=== PATIENT | female | born 1955 | race Caucasian/White ===

== ENCOUNTER 2020-08-15 05:40 | Inpatient (IN) | payer BC, MEDICARE, SELFPAY ==
[~2020-08-15] VITALS: Ht 157.5 cm; Wt 71.2 kg
[2020-08-15 05:45] VITALS: BP_SYST 156
[2020-08-15] MEDS ORDERED: cefTRIAXone 1 GM IVPB PREMIX 50 ML IV ONE (06:30)
[2020-08-15] MEDS ORDERED: KETOROLAC TROMETHAMINE 30 MG VIAL IVP ONE (06:45)
[2020-08-15 07:00] LABS: BASOPHILS % (AUTO) 0.4 % (0.0-2.0); EOSINOPHILS # (AUTO) 0.1 K/uL (0.0-0.4); EOSINOPHILS % (AUTO) 1.3 % (0.0-4.0); HEMATOCRIT 42.6 % (36-48); HEMOGLOBIN 14.1 g/dL (12.0-16.0); LYMPHOCYTES # (AUTO) 1.7 K/uL (1.0-5.5); LYMPHOCYTES % (AUTO) 17.9 % (20.5-51.5); MEAN CORPUSCULAR HEMOGLOBIN 30 pg (27-31); MEAN CORPUSCULAR HGB CONC 33 % (32-36); MEAN CORPUSCULAR VOLUME 91 fL (79.0-98.0); MONOCYTES # (AUTO) 0.6 K/uL (0.0-1.0); NEUTROPHILS # (AUTO) 6.9 K/uL (1.8-7.7); NEUTROPHILS % (AUTO) 74.4 % (40.0-70.0); PLATELET COUNT (AUTO) 376 K/uL (130-430); RED CELL DISTRIBUTION WIDTH 14.3 % (9.0-15.0); WHITE BLOOD COUNT (AUTO) 9.3 K/uL (4.8-10.8)
[2020-08-15 07:19] LABS: CALCIUM 9.6 mg/dL (8.4-11.0); CREATININE 0.63 mg/dL (0.55-1.30)
[2020-08-15 07:25] LABS: ALBUMIN 3.8 g/dL (3.4-4.8); TOTAL BILIRUBIN 0.5 mg/dL (0.0-1.0)
[2020-08-15] MEDS: D5/0.45 NS 1,000 ML IV SCH ×3 (08:18→22:26)
[2020-08-15 09:14] VITALS: BP_SYST 138
[2020-08-15 09:26] VITALS: BP_SYST 138
[2020-08-15] MEDS ORDERED: HYDROcodone/ACETAMIN 5-325 MG TAB (NORCO/ VICODIN) PO PRN (13:15)
[2020-08-15 16:14] VITALS: BP_SYST 132
[2020-08-15] MEDS ORDERED: KETOROLAC TROMETHAMINE 10 MG TABLET (TORADOL) PO PRN (16:30)
[2020-08-15] MEDS ORDERED: KETOROLAC TROMETHAMINE 15 MG VIAL IM PRN (16:45)
[2020-08-15] MEDS: KETOROLAC TROMETHAMINE 15 MG VIAL IVP PRN ×2 (16:56→23:01)
[2020-08-15 20:00] VITALS: BP_SYST 141
[2020-08-15] MEDS ORDERED: CIPROFLOXACIN HCL OT SCH (21:00)
[2020-08-15] MEDS ORDERED: DEXAMET OT SCH (21:00)
[2020-08-15] MEDS: CIPROFLOXACIN HCL LEFT EAR SCH (22:26)
[2020-08-15] MEDS: DEXAMET LEFT EAR SCH (22:26)
[2020-08-15] MEDS: guaiFENesin/DEXTROMETHORPHAN 10 ML UDC PO PRN (23:01)
[2020-08-15] MEDS: DIPHENHYDRAMINE INJ 50 MG/ML VIAL IVP PRN (23:01)
[2020-08-16] VITALS: BP_SYST 135
[2020-08-16] MEDS: KETOROLAC TROMETHAMINE 15 MG VIAL IVP PRN ×3 (05:05→18:55)
[2020-08-16] MEDS: DIPHENHYDRAMINE INJ 50 MG/ML VIAL IVP PRN (05:05)
[2020-08-16] MEDS: guaiFENesin/DEXTROMETHORPHAN 10 ML UDC PO PRN ×2 (05:05→20:45)
[2020-08-16] MEDS: LEVOFLOXACIN 500 MG/D5W 100 ML IV SCH (06:07)
[2020-08-16 06:08] LABS: BASOPHILS % (AUTO) 0.1 % (0.0-2.0); EOSINOPHILS % (AUTO) 0.3 % (0.0-4.0); HEMATOCRIT 36.7 % (36-48); HEMOGLOBIN 12.1 g/dL (12.0-16.0); LYMPHOCYTES # (AUTO) 1.4 K/uL (1.0-5.5); LYMPHOCYTES % (AUTO) 14.8 % (20.5-51.5); MEAN CORPUSCULAR HEMOGLOBIN 30 pg (27-31); MEAN CORPUSCULAR HGB CONC 33 % (32-36); MEAN CORPUSCULAR VOLUME 91 fL (79.0-98.0); MONOCYTES # (AUTO) 0.6 K/uL (0.0-1.0); MONOCYTES % (AUTO) 6.1 % (1.7-9.3); NEUTROPHILS # (AUTO) 7.2 K/uL (1.8-7.7); NEUTROPHILS % (AUTO) 78.7 % (40.0-70.0); PLATELET COUNT (AUTO) 308 K/uL (130-430); RED BLOOD CELL COUNT(AUTO) 4.03 MIL/uL (4.2-6.2); RED CELL DISTRIBUTION WIDTH 14.4 % (9.0-15.0); WHITE BLOOD COUNT (AUTO) 9.1 K/uL (4.8-10.8)
[2020-08-16 07:07] LABS: CALCIUM 8.6 mg/dL (8.4-11.0); CREATININE 0.82 mg/dL (0.55-1.30); POTASSIUM 3.9 mmol/L (3.5-5.1)
[2020-08-16 08:30] VITALS: BP_SYST 121
[2020-08-16] MEDS: DEXAMET LEFT EAR SCH ×2 (09:00→20:10)
[2020-08-16] MEDS: CIPROFLOXACIN HCL LEFT EAR SCH ×2 (09:00→20:10)
[2020-08-16] MEDS: cefTRIAXone 1 GM in D5W 50 ML IV SCH (09:00)
[2020-08-16 12:15] VITALS: BP_SYST 138
[2020-08-16] MEDS: D5/0.45 NS 1,000 ML IV SCH ×2 (14:15→23:51)
[2020-08-16 16:00] VITALS: BP_SYST 134
[2020-08-16 20:00] VITALS: BP_SYST 137
[2020-08-17] VITALS: BP_SYST 135
[2020-08-17] MEDS: DIPHENHYDRAMINE INJ 50 MG/ML VIAL IVP PRN ×2 (00:55→06:54)
[2020-08-17] MEDS: KETOROLAC TROMETHAMINE 15 MG VIAL IVP PRN ×2 (00:55→06:54)
[2020-08-17] MEDS: guaiFENesin/DEXTROMETHORPHAN 10 ML UDC PO PRN (02:59)
[2020-08-17] MEDS: LEVOFLOXACIN 500 MG/D5W 100 ML IV SCH (06:53)
[2020-08-17] MEDS: D5/0.45 NS 1,000 ML IV SCH (07:30)
[2020-08-17 08:00] VITALS: BP_SYST 132
[2020-08-17] MEDS: cefTRIAXone 1 GM in D5W 50 ML IV SCH (09:00)
[2020-08-17] MEDS: DEXAMET LEFT EAR SCH (09:00)
[2020-08-17] MEDS: CIPROFLOXACIN HCL LEFT EAR SCH (09:00)
[2020-08-17 12:00] VITALS: BP_SYST 141
[2020-08-17 14:43] VITALS: BP_SYST 128
[2020-08-17] MEDS ORDERED: CIPR7.5D LEFT EAR (14:47)
[2020-08-17] MEDS ORDERED: LEVO750T45 PO (14:48)
[2020-08-17 15:05] VITALS: BP_SYST 128
== END 2020-08-17 15:30 | disposition home or self-care (01) | DRG 203 ==
LOC: SED 05:40 → SMU 08:02
PROVIDERS: ADMIT Internal Medicine; ATTEND Internal Medicine
DX: M94.0 Chondrocostal junction syndrome [Tietze] (principal); J18.9 Pneumonia, unspecified organism; K21.9 Gastro-esophageal reflux disease without esophagitis; Z20.828 Contact with and (suspected) exposure to other viral communicable diseases
CPT/HCPCS: 36415; 36600; 71045; 71250-TC; 80048; 80053; 82803-TC; 83605; 83880; 84484; 85025; 85379; 87040-TC; 93005; 96365; 96367; 96375; 99291; J0696; J1200; J1885; J1956; J7060; U0003